=== PATIENT | female | born 1995 | race Caucasian/White ===

== ENCOUNTER 2016-08-03 20:32 | Emergency (ER) | payer OTHER ==
[~2016-08-03] VITALS: Ht 160 cm; Wt 68.0 kg
[2016-08-03] MEDS ORDERED: HYDROCODONE-AP1 EAC6 PO (23:24)
[2016-08-04 00:13] VITALS: BP 134/91
== END 2016-08-04 00:13 | disposition home or self-care (01) ==
LOC: ER 20:32
DX: N75.1 Abscess of Bartholin's gland (principal); F17.210 Nicotine dependence, cigarettes, uncomplicated; Z88.6 Allergy status to analgesic agent